=== PATIENT | male | born 1975 | race Caucasian/White ===

== ENCOUNTER → 2019-04-13 18:49 | Emergency (ER) | payer OTHER ==
[2019-04-13 19:12] VITALS: BP 126/87
== END | disposition left against medical advice (07) ==
LOC: ED 18:49
DX: Z53.21 Procedure and treatment not carried out due to patient leaving prior to being seen by health care provider (principal)
CPT/HCPCS: 99281

== ENCOUNTER 2019-04-13 20:23 | Emergency (ER) | payer OTHER ==
[2019-04-13 20:41] VITALS: BP 115/84
--- NOTE | 2019-04-13 21:01 | UC ---
Skin Complaint HPI - HPI Summary HPI Summary: 43 y/o male presents to the urgent care c/o tick on the left side of his mid abdomen. He was hiking yesterday and this morning he was biking. He noticed this evening, but he thinks it has been there for 1 day. No Hx of tick bite in the past. Pt denies fever, MAURER, joint pain, SOB, chest pain, abdominal pain, N/v/ d. Tick doesn't look engorged. - History of Current Complaint Chief Complaint: UCSkin Time Seen by Provider: 04/13/19 20:59 Stated Complaint: TICK Hx Obtained From: Patient Onset/Duration: Gradual Onset, Lasting Days - 1 day went hiking yesterday, Still Present, Worse Since - today when noticed Skin Exposure Onset/Duration: Days Ago - 1 day Timing: Constant Onset Severity: Mild Current Severity: Mild Pain Intensity: 0 Pain Scale Used: 0-10 Numeric Location: Discrete - left side ob mid abdomen w/ tick Character: Redness Aggravating Factor(s): Touch Alleviating Factor(s): Nothing Associated Signs & Symptoms: Positive: Rash - tick bite on left side of mid abdomen. tick still present and alive. Negative: Fever, Chills Related History: Possible Reaction to: Insect - tick - Allergy/Home Medications Allergies/Adverse Reactions: Allergies Allergy/AdvReac Type Severity Reaction Status Date / Time Penicillins Allergy Rash Verified 04/13/19 20:42 PMH/Surg Hx/FS Hx/Imm Hx Previously Healthy: Yes - Pt denies pMHX - Surgical History Surgical History: None - Family History Known Family History: Positive: Hypertension - Social History Occupation: Employed Full-time Lives: With Family Alcohol Use: Daily Substance Use Type: None Smoking Status (MU): Never Smoked Tobacco Review of Systems All Other Systems Reviewed And Are Negative: Yes Constitutional: Positive: Negative Skin: Positive: Other - tick bite on left side of mid abdomen w/ tick still present Eyes: Positive: Negative ENT: Positive: Negative Respiratory: Positive: Negative Cardiovascular: Positive: Negative Gastrointestinal: Positive: Negative Genitourinary: Positive: Negative Motor: Positive: Negative Neurovascular: Positive: Negative Musculoskeletal: Positive: Negative Neurological: Positive: Negative Psychological: Positive: Negative Is Patient Immunocompromised?: No Physical Exam - Summary Physical Exam Summary: Vital Signs Reviewed: Yes General: well developed, well nourished male sitting in the examining table w/o any apparent distress. Eyes: Positive: Conjunctiva Clear - PERRLA, EOMI ENT: Positive: Normal ENT inspection, Hearing grossly normal, Pharynx normal, TMs normal Neck: Positive: Supple, Nontender, No Lymphadenopathy Respiratory: Positive: Chest nontender, Lungs clear, Normal breath sounds Cardiovascular: Positive: RRR, No Murmur, Pulses Normal Abdomen Description: Positive: Nontender, No Organomegaly, Soft. Negative: CVA Tenderness (R), CVA Tenderness (L) Bowel Sounds: Positive: Present Musculoskeletal: Positive: Strength Intact, ROM Intact, No Edema Neurological Exam: Normal Psychological Exam: Normal Skin: Positive: rashes - Left side of the mid abdomen with tick bite with surrounding erythema, non tender to palpation. tick still present, no swelling or drainage observed Triage Information Reviewed: Yes Vital Signs: Initial Vital Signs Temp 98.4 F 04/13/19 20:38 Pulse 76 04/13/19 20:38 Resp 16 04/13/19 20:38 BP 115/84 04/13/19 20:38 Pulse Ox 99 04/13/19 20:38 Course/Dx - Course Course Of Treatment: 43 y/o male presents to the urgent care c/o tick on the left side of his mid abdomen. He was hiking yesterday and this morning he was biking. He noticed this evening, but he thinks it has been there for 1 day. No Hx of tick bite in the past. Pt denies fever, MAURER, joint pain, SOB, chest pain, abdominal pain, N/v/ d. Tick doesn't look engorged. Hx obtained. PT w/ Left side of the mid abdomen with tick bite with surrounding erythema, non tender to palpation. tick still present, no swelling or drainage observed on examination. Tick was removed from from left side of abdomen using twister technique. After tick removal and the skin cleansing and bacitracin oint applied. Antibiotic prophylaxis with Doxycycline given to the patient to prevent lyme Disease.. Pt tolerated well medication. Pt advised to observe the area for the development or Erythema Migrans for upto 30 days following exposure. Advised if he develops fever or erythema Migrans to return to the clinic or PCP for further treatment .Pt understood and agreed with plan of care. - Differential Diagnoses - Skin Complaint Differential Diagnoses: Abscess, Cellulitis, Contact Dermatitis, MRSA, Tick Born Illness, Tinea, Urticaria - Diagnoses Provider Diagnosis: Tick bite of abdominal wall Discharge - Sign-Out/Discharge Documenting (check all that apply): Patient Departure - d/c home All imaging exams completed and their final reports reviewed: No Studies - Discharge Plan Condition: Stable Disposition: HOME Prescriptions: Bacitracin OINTMENT* 1 applic TOPICAL BID #1 tube Patient Education Materials: Tick Bite (ED) Referrals: [facility] [Outside] - If Needed Jeffery [place],Eric Dee [Medical Doctor] - If Needed Additional Instructions: 1- Please observe the area for the development or Erythema Migrans for upto 30 days following exposure. Components of the tick saliva can cause transient erythema that should not be confused with Erythema Migrans. If you develop the bull's eye rash, fever, joint pains please return to the urgent care or f/u with your PCP or Dr Gil for further management. Apply Bacitracin oint around tick bite as directed 2-Antibiotic prophylaxis with Doxycycline was given to you today to prevent lyme Disease. Lyme serology can be drawn in 2 weeks with your PCP to r/o Lyme disease since there is probability of negative results at early exposure. - Billing Disposition and Condition Condition: STABLE Disposition: Home
[2019-04-13] MEDS ORDERED: DOXYcycline CAP(*) 100 MG PO ONE (21:30)
== END 2019-04-13 21:47 | disposition home or self-care (01) ==
LOC: UCEAST 20:23
DX: W57.XXXA Bitten or stung by nonvenomous insect and other nonvenomous arthropods, initial encounter (principal); S30.861A Insect bite (nonvenomous) of abdominal wall, initial encounter; Y92.9 Unspecified place or not applicable; Z88.0 Allergy status to penicillin
CPT/HCPCS: 99212; A9270-GY; G0463